=== PATIENT | female | born 1960 | race Caucasian/White ===

== ENCOUNTER → 2021-07-17 | Day surgery (SDC) | payer MEDICAID ==
[~2021-07-17] VITALS: Ht 165.1 cm; Wt 70.1 kg
[~2021-07-17] MED LIST: ACET-2119 PO; FLU VACC QS2021-22(6MOS UP)/PF 60 MCG/0.5 ML SYRINGE IM ONE; IBUP-1984 PO; IBUP-1985 PO; LIDOCAINE 1% w/preservative (10 MG/ML) inj. 10mL VIAL ONE; PHEN30SP5 NS; fentaNYL/PF 50MCG/1 ML 2ML syringe ONE; heparin sodium, porcine/PF 100unit/ml 5ML syringe ONE; midazolam 1 mg/ML 2ml injection ONE; normal saline 1000ml 1,000 ML IV PRN; normal saline 1000ml 1,000 ML IV SCH; vitamin d PO
[2021-07-17 11:33] VITALS: BP 112/69
[2021-07-17 14:16] VITALS: BP 132/77
[2021-07-17 14:31] VITALS: BP 123/71
[2021-07-17 14:46] VITALS: BP 104/64
[2021-07-17 15:13] VITALS: BP 99/72
== END | disposition home or self-care (01) ==
LOC: SSTAY O 10:57
PROVIDERS: ATTEND Radiology Diagnostic Radiology
DX: C57.02 Malignant neoplasm of left fallopian tube (principal); J44.9 Chronic obstructive pulmonary disease, unspecified; M19.90 Unspecified osteoarthritis, unspecified site; F32.A Depression, unspecified; E78.00 Pure hypercholesterolemia, unspecified; Z90.710 Acquired absence of both cervix and uterus; Z90.722 Acquired absence of ovaries, bilateral; Z98.890 Other specified postprocedural states; Z87.891 Personal history of nicotine dependence; Z79.899 Other long term (current) drug therapy; Z20.822 Contact with and (suspected) exposure to COVID-19; Z80.3 Family history of malignant neoplasm of breast; Z80.1 Family history of malignant neoplasm of trachea, bronchus and lung
CPT/HCPCS: 36561; 76937; 77001; 87635; 99152; C1769; C1788; C1894; C9803; J1642; J2250; J3010; J7030; 99153